=== PATIENT | male | born 1935 | race Caucasian/White ===

== ENCOUNTER 2017-03-02 20:39 | Emergency (ER) | payer MEDICARE, OTHER ==
[2017-03-02 21:18] LABS: BASO % 0.4 % (0.2-1.2); EOS # 0.3 10_X3_uL (0.0-0.5); EOS % 3.7 % (0.8-7.0); GRAN # 5.8 10_X3_uL (1.8-5.4); GRAN % 64.4 % (34.0-67.9); HEMATOCRIT 36.8 % (40-51); HEMOGLOBIN 11.5 g/dL (13.7-17.5); LYMPH # 2.1 10_X3_uL (1.3-3.6); LYMPH % 23.2 % (21.8-53.1); MEAN CORPUSCULAR HEMOGLOBIN 29.6 pg (27.0-33.0); MEAN CORPUSCULAR HGB CONC 31.3 g/dL (32.0-36.0); MEAN CORPUSCULAR VOLUME 94.8 fL (79-92); MONO # 0.7 10_X3_uL (0.3-0.8); MONO % 8.3 % (5.3-12.2); PLATELET COUNT 388 x10_3/uL (163-337); RED BLOOD COUNT 3.88 x10_6/uL (4.6-6.1); RED CELL DISTRIBUTION WIDTH 14.7 % (11.6-14.4)
[2017-03-02 21:34] LABS: ALBUMIN 3.3 gm/dL (3.4-5.0); ALKALINE PHOSPHATASE 59 U/L (50-136); ALT/SGPT 29 U/L (7.53-40.17); AST/SGOT 26 U/L (6.66-35.34); BILIRUBIN,TOTAL 0.19 mg/dL (0.0-1.0); BLOOD UREA NITROGEN 12 mg/dL (7-18); CALCIUM 8.5 mg/dL (8.7-10.7); CARBON DIOXIDE 23 mmol/L (21-32); CREATININE 0.8 mg/dL (0.6-1.3); GLUCOSE,RANDOM 105 mg/dL (70-99); POTASSIUM 4.5 mmol/L (3.5-5.1); SODIUM 138 mmol/L (136-145); TOTAL PROTEIN 5.7 gm/dL (6.4-8.2)
== END 2017-03-02 23:24 | disposition home or self-care (01) ==
LOC: ER 20:39
PROVIDERS: General Practice
DX: R53.1 Weakness (principal); J84.9 Interstitial pulmonary disease, unspecified; I25.2 Old myocardial infarction; I10 Essential (primary) hypertension; G62.9 Polyneuropathy, unspecified; K21.9 Gastro-esophageal reflux disease without esophagitis; I25.10 Atherosclerotic heart disease of native coronary artery without angina pectoris; Z95.1 Presence of aortocoronary bypass graft; Z95.0 Presence of cardiac pacemaker; Z79.899 Other long term (current) drug therapy
CPT/HCPCS: 36415; 71010; 80053; 83880; 85025; 93005; 99284; 99285-25; G0328-QW

== ENCOUNTER 2017-04-19 14:21 | Emergency (ER) | payer MEDICARE, OTHER | END 2017-04-19 16:43 | disposition home or self-care (01) | LOC: ER 14:21 | DX: M54.5 Low back pain (principal); G89.29 Other chronic pain; Z79.891 Long term (current) use of opiate analgesic; Z79.899 Other long term (current) drug therapy; H91.93 Unspecified hearing loss, bilateral | CPT/HCPCS: 96372; 99282-25; 99283 ==